=== PATIENT | female | born 1955 | race Caucasian/White ===

== ENCOUNTER 2018-05-19 12:32 | Observation (INO) ==
--- NOTE | 2018-05-19 13:16 | Emergency Department Note ---
Disposition Clinical Impression: Chest pain Qualifiers: Chest pain type: unspecified Qualified Code(s): R07.9 - Chest pain, unspecified Disposition: Admitted As Inpatient Condition: Undetermined Time of Disposition: 13:53 Chest Pain HPI - General Chief Complaint: ED Chest Pain Stated Complaint: CP Time Seen by Provider: 05/19/18 12:46 Source: patient Mode of arrival: ambulatory Limitations: no limitations Vital Signs Reviewed: Yes Nursing Notes Reviewed: Yes - History of Present Illness HPI Narrative: 62-year-old female with history of hypertension, hyperlipidemia, hypothyroidism arrives to the emergency Department complaint of retrosternal chest pain radiating around her right shoulder into her back. The patient has some mild associated shortness of breath. The patient states he has never had any cardiovascular disease, no previous cardiac testing. The patient states the patient is been intermittent in nature over the course of the past 2 weeks. The patient states that sometimes when she is relaxing and sitting still. Other times states that it is when she comes to work. The patient had a gallbladder ultrasound earlier today and was told that this is not what the pain is being caused from. The patient denies any other acute complaints at this time including unilateral excellent, recent surgeries or immobilizations, history of DVT or PE, hemoptysis. Severity scale (1-10): 1 - Related Data Allergies Allergy/AdvReac Type Severity Reaction Status Date / Time No Known Allergies Allergy Verified 12/26/15 07:14 All systems ED: reviewed and negative except as stated. Constitutional: Denies: fever, chills, weakness ENT ED: Denies: dysphagia Cardiovascular: Reports: chest pain. Denies: dyspnea on exertion, orthopnea, edema, syncope Respiratory: Reports: dyspnea. Denies: cough, sputum production Gastrointestinal: Denies: abdominal pain, nausea, vomiting Genitourinary: Denies: urgency, dysuria Musculoskeletal: Denies: back pain Integumentary: Denies: rash Neurological: Denies: headache Chest Pain PMH - Past Medical History Medical history: Reports: hyperlipidemia, hypertension, thyroid disease Psychiatric history: Reports: no psych history SHIRT PRESSER history: Reports: cervical cancer - Social History Smoking Status: Never smoker Alcohol use: Reports: none Drug use: Reports: none Physical Exam - General Limitations: no limitations General appearance: alert, in no apparent distress - Head Head exam: atraumatic, normocephalic, normal inspection - Eye Eye exam: Present: normal appearance, PERRL, EOMI - ENT ENT exam: normal exam, normal oropharynx, mucous membranes moist - Neck Neck exam: Present: normal inspection, full ROM, trachea midline - Chest Chest inspection: Present: normal inspection, symmetric chest wall rise - Respiratory Respiratory exam: Present: normal lung sounds bilaterally - Cardiovascular Cardiovascular exam: Present: regular rate, normal rhythm, normal heart sounds - Abdominal Exam Abdominal exam: Present: soft, Non-Tender. Absent: tenderness, distention, guarding, rebound, rigidity - Extremities Exam Extremities exam: Present: normal inspection, full ROM. Absent: tenderness, pedal edema - Back Exam Back exam: Present: normal inspection, full ROM. Absent: tenderness - Neurological Exam Neurological exam: Present: alert, oriented X3 - Skin Skin exam: Present: warm, dry, intact Course Vital Signs Temperature 98.7 F 05/19/18 12:38 Pulse Rate 85 05/19/18 12:38 Respiratory Rate 12 05/19/18 12:38 Blood Pressure 163/67 05/19/18 12:38 O2 Sat by Pulse Oximetry 96 05/19/18 12:38 Temperature 98.5 F 05/19/18 13:37 Pulse Rate 70 05/19/18 13:37 Respiratory Rate 16 05/19/18 13:37 Blood Pressure 153/67 05/19/18 13:40 O2 Sat by Pulse Oximetry 99 05/19/18 13:37 Oxygen Delivery Oxygen Delivery Room Air Chest Pain - MDM Narrative Medical decision making narrative: Patient's workup in the emergency department demonstrates no acute process. The patient is chest pain-free at this time. Given the patient's lack of previous cardiovascular workup combined with her risk factors and findings concerning for unstable angina, we will admit the patient to the hospital at this time. I shared decision making with the patient and we discussed about being discharged home or staying in the hospital she states she would like to stay in the hospital. Patient will be admitted the hospital this time. No further questions or concerns noted. - Medical Records Medical records reviewed: Yes I reviewed the patient's medical records. - Lab Data Lab results reviewed: Yes I reviewed the patient's lab results. Result diagrams: 05/19/18 12:59 05/19/18 12:56 Lab Results 03/29/19 03/29/19 03/29/19 Range/Units 12:46 12:56 12:59 WBC 8.0 (4.3-11.1) K/mcL RBC 4.50 (3.82-4.97) M/mcL Hgb 12.5 (11.5-15.4) g/dL Hct 38.6 (35.3-44.9) % MCV 85.8 (83.0-100.0) fL MCH 27.8 L (28.0-33.3) pg MCHC 32.4 (31.6-35.5) g/dL RDW 14.6 H (11.5-14.5) % Plt Count 302 (140-400) K/mcL MPV 11.9 (9.4-12.4) fL Immature Gran % 0.1 (0-4) % Seg Neutrophils % 57.2 % Lymphocytes % 33.2 % Monocytes % 6.8 % Eosinophils % 1.8 % Basophils % 0.9 % Neutrophils # 4.6 (1.6-8.9) K/mcL Lymphocytes # 2.6 (0.6-4.6) K/mcL Monocytes # 0.5 (0.0-1.3) K/mcL Eosinophils # 0.1 (0.0-0.6) K/mcL Basophils # 0.1 (0.0-0.2) K/mcL PT 11.6 (9.4-12.1) Seconds INR 1.0 APTT 31.4 (26.0-36.0) Seconds Sodium 143 (136-145) mEq/L Potassium 3.6 (3.5-5.1) mEq/L Chloride 105 (98-107) mEq/L Carbon Dioxide 27 (23-29) mEq/L BUN 25 H (8-23) mg/dL Creatinine 0.74 (0.60-1.20) mg/dL Est GFR ( Amer) > 60 (> 60) Est GFR (Non-Af Amer) > 60 (> 60) BUN/Creatinine Ratio 34 H (6-26) Glucose 143 H (70-105) mg/dL Calculated Osmolality 303 H (280-300) Calcium 9.3 (8.6-10.3) mg/dL Troponin I < 0.03 (< 0.04) ng/mL - Radiology Data Radiology results reviewed: Yes I reviewed the patient's radiology results. Chest X-Ray 05/19/18 12:46 IMPRESSION: No acute cardiopulmonary disease. D/ / Hannah Peguero MD / Hannah Peguero MD Interpreting Provider: Hannah Peguero MD - EKG Data EKG attestation: Yes I reviewed and interpreted this EKG. EKG results narrative: Problem heart rate 80 beats for minute. Normal sinus rhythm. No ST elevation or ST depression noted. Inverted T waves noted in V1. No other acute changes noted. Attestation Statement - Attestation Attestation: I, John Keys, examined this patient and my medical decision-making was reviewed with the INTERNATIONAL RECRUITER/PA/Advanced Practice Nurse/Resident Physician. I agree with the documented findings, disposition and treatment plan as described except to the extent set forth below. 60-year-old female presents emergency department with concerns of respiratory and chest pain. Patient states symptoms have been worsening over the past 2 weeks. Associated with exertion. Not present in the emergency department. Laboratory evaluation does not show significant abnormality. EKG did not show evidence of STEMI. Patient will be admitted for further care and evaluation of her acute onset chest pain to rule out ACS.
[2018-05-19 13:21] LABS: Basophils # 0.1 K/mcL (0.0-0.2); Basophils % 0.9 %; Eosinophils # 0.1 K/mcL (0.0-0.6); Eosinophils % 1.8 %; Hematocrit 38.6 % (35.3-44.9); Hemoglobin 12.5 g/dL (11.5-15.4); Immature Granulocytes % 0.1 % (0-4); Lymphocytes # 2.6 K/mcL (0.6-4.6); Lymphocytes % 33.2 %; Mean Corpuscular HGB Conc 32.4 g/dL (31.6-35.5); Mean Corpuscular Hemoglobin 27.8 pg (28.0-33.3); Mean Corpuscular Volume 85.8 fL (83.0-100.0); Mean Platelet Volume 11.9 fL (9.4-12.4); Monocytes # 0.5 K/mcL (0.0-1.3); Monocytes % 6.8 %; Neutrophils # 4.6 K/mcL (1.6-8.9); Platelet Count 302 K/mcL (140-400); Red Cell Distribution Width 14.6 % (11.5-14.5); Segmented Neutrophils % 57.2 %
[2018-05-19 13:28] LABS: Prothrombin Time 11.6 Seconds (9.4-12.1)
[2018-05-19 13:30] LABS: Activated Partial Thrombo Time 31.4 Seconds (26.0-36.0)
[2018-05-19 13:37] LABS: BUN/Creatinine Ratio 34 (6-26); Blood Urea Nitrogen 25 mg/dL (8-23); Calcium 9.3 mg/dL (8.6-10.3); Carbon Dioxide 27 mEq/L (23-29); Chloride 105 mEq/L (98-107); Glucose 143 mg/dL (70-105); Osmolality,Calculated 303 (280-300); Potassium 3.6 mEq/L (3.5-5.1); Sodium 143 mEq/L (136-145); Troponin I < 0.03 ng/mL (< 0.04); eGFR For Non-African Americans > 60 (> 60)
[2018-05-19] MEDS ORDERED: Aspirin 325 MG TABLET PO ONE (13:54)
[2018-05-19] MEDS ORDERED: Naloxone 0.4 MG/ML INJ IVP PRN (15:13)
[2018-05-19] MEDS ORDERED: Acetaminophen 325 MG TABLET PO PRN (15:13)
[2018-05-19] MEDS ORDERED: *HR* HYDROcodone/Acet 5/325 mg TABLET PO PRN (15:13)
[2018-05-19] MEDS ORDERED: Nitroglycerin 0.4 MG TAB.SUBL SL PRN (15:45)
--- NOTE | 2018-05-19 15:52 | Internal Med History&Physical ---
Date of Encounter: 05/19/18 Time of Encounter: 15:48 Internal Medicine - H&P: HPI Chief complaint: chest pain Admitted From: Emergency Dept Plans for Post Hospital Care: Home History of present illness: Ms. Cullen is a 62 year old female with known past medical history of hypertension and hyperlipidemia who presented to ER complaining about from last 2 weeks patient has been having intermittent chest pain located at sub sternal region, 5 out of 10 in severity, radiating to her upper back bilaterally, sometimes to her neck also. Her chest pain associated with some nausea. She does work in our OR as real estate associate. She had RUQ US done today which showed 1 cm right hepatic lobe hyperechoic focus, favoring benign etiology such as hemangioma or focal fatty replacement. Her initial troponin came back as negative. Past Med Surg Social Fam HX - Past Medical History Medical history: hyperlipidemia, hypertension, thyroid disease Psychiatric history: no psych history - Social History Smoking Status: Never smoker Smokeless Tobacco Status: No Alcohol use: none Drug use: none - Family History Father Living Status: Age at : 72 Cause of : CA Hx Family Cardiac Disorders: Yes (RI at age 62) Internal Medicine - H&P: Meds Allergy/AdvReac Type Severity Reaction Status Date / Time No Known Allergies Allergy Verified 12/26/15 07:14 All Systems PM: A 10-system review of systems was performed and is negative for pertinent findings except as documented above in the HPI. Review of systems: All the systems are reviewed everything is benign except the systems and sy mptoms I mentioned in the history of present illness - Constitutional Vitals: Temp Pulse Resp BP Pulse Ox 98.5 F 70 16 153/67 99 05/19/18 13:37 05/19/18 13:37 05/19/18 13:37 05/19/18 13:40 05/19/18 13:37 General appearance: Present: cooperative, A&O X 3, no acute distress, answers questions appropriately Exam: See below - Head Head exam: Present: atraumatic, normal inspection - Neck Neck exam general surgery: Present: supple - Respiratory Respiratory exam: Present: decreased breath sounds. Absent: rales, respiratory distress, rhonchi, wheezes - Cardiovascular Cardiovascular exam: Present: RRR, +S1, +S2. Absent: tachycardia - GI/Abdominal GI/Abdominal exam: Present: normal bowel sounds, soft. Absent: rebound, rigid, tenderness - Extremities Exam Extremities exam: Absent: calf tenderness, pedal edema, tenderness - Back Exam Back exam: Absent: CVA tenderness (L), CVA tenderness (R) - Neurological Exam Neurological exam: Present: alert, oriented X3, no focal deficits - Psychiatric Psychiatric exam: Present: normal affect, normal mood - Skin Skin exam: Absent: rash Internal Med - H&P Results - Labs CBC & Chem 7: 05/19/18 12:59 05/19/18 12:56 Labs: Short CBC 05/19/18 Range/Units 12:59 WBC 8.0 (4.3-11.1) K/mcL Hgb 12.5 (11.5-15.4) g/dL Hct 38.6 (35.3-44.9) % Plt Count 302 (140-400) K/mcL Neutrophils # 4.6 (1.6-8.9) K/mcL BMP 05/19/18 12:56 Sodium 143 Potassium 3.6 Chloride 105 Carbon Dioxide 27 BUN 25 H Creatinine 0.74 Glucose 143 H Calcium 9.3 Cardiac Enzymes 05/19/18 Range/Units 12:56 Troponin I < 0.03 (< 0.04) ng/mL - Impressions ITS Impressions Chest X-Ray 05/19/18 12:46 IMPRESSION: No acute cardiopulmonary disease. D/ / Hannah Peguero MD / Hannah Peguero MD Interpreting Provider: Hannah Peguero MD - Assessment and Plan (1) Chest pain Current Visit: Yes Status: Acute Assessment and plan: Will admit the pt into Tele for observation Will place pt on cardiac nurse specialist check serial troponin so far negative troponin EKG reviewed - showed normal sinus rhythm. no acute ST, T changes noticed reviewed her chest x-ray which did not show active infiltrates / no c onsolidation will start pt on ASA and Nitro PRN for pain Will check FLP in AM Will get stress test in AM since pt is high risk for ACS Qualifiers: Chest pain type: unspecified Qualified Code(s): R07.9 - Chest pain, unspecified (2) HTN (hypertension) Current Visit: Yes Status: Acute Assessment and plan: Will resume her home medication once the conformed by pharmacy grad intern mean while will give her Hydralazine IV PRN Qualifiers: Hypertension type: essential hypertension Qualified Code(s): I10 - Essential (primary) hypertension (3) DVT prophylaxis Current Visit: Yes Status: Acute Assessment and plan: Low risk early ambulation recommended - Time Spent With Patient Total time spent is greater than 50% in coordination of care (as documented) at patient's floor/unit and/or counseling patient:
[2018-05-20 07:00] LABS: Chol/HDL Ratio 2.5 (0-4.9)
[2018-05-20] MEDS ORDERED: Regadenoson 0.4 MG/5 ML SYRINGE IVP ONE (07:28)
--- NOTE | 2018-05-20 08:43 | Internal Med Progress Note ---
<CornelianydiaAmirah N - Last Filed: 05/20/18 11:25> Hospitalist Progress Note - Encounter Date of Encounter: 05/20/18 Time of Encounter: 09:15 - Subjective Interval History: Patient seen and examined at bedside this morning. She recently returned from her stress test. Denies any chest pain, SOB, diaphoresis, nausea, or palpitations. She does admit to a family history of coronary artery disease and heart attacks in her father in his 70s and her grandfather as well. Results from stress is pending. - Exam Vitals: Temp Pulse Resp BP Pulse Ox 97.6 F 63 15 174/78 98 05/20/18 06:54 05/20/18 06:54 05/20/18 06:54 05/20/18 06:54 05/20/18 06:54 Exam: General: Resting comfortably in bed, no acute distress HEENT: Pupils are equal and round, EOMI, mucosa moist, external ears and ears patent Neck: No JVD, trachea midline Chest: Symmetrical chest rise, no tenderness to palpation Cardiovascular: Regular rate and rhythm, no murmurs Respiratory: Clear to auscultation bilaterally, no rales or wheezing Abdomen: Soft, nontender, no guarding rigidity Extremity: No cyanosis, clubbing, or edema Neurological: Alert and oriented 3, no obvious focal neurological deficits Psych: Pleasant, appropriate mood and affect - Assessment and Plan (1) Chest pain Status: Acute Assessment and Plan: Serial troponins and EKG negative for ischemic disease Patient is high risk for coronary artery disease as she has family history of AL in her father and grandfather. Pulses hospitalist hypertension hyperlipidemia Lipids within range Vitals stable Does not report any chest pain or shortness of breath this morning Recently returned from a stress test, stress results pending We will continue daily aspirin, has not required nitroglycerin for chest pain (2) HTN (hypertension) Status: Acute Assessment and Plan: Restarted home antihypertensives (3) Hypothyroidism Status: Acute Assessment and Plan: Levothyroxine (4) Hyperlipidemia Status: Acute Assessment and Plan: Lipids within range Continue statin (5) Hyperglycemia Status: Acute Assessment and Plan: Patient's glucose on admission 143 No known history of diabetes We will collect A1c (6) DVT prophylaxis Status: Acute Assessment and Plan: Heparin subcutaneous - Time Spent with Patient Total time spent is greater than 50% in coordination of care (as documented) at patient's floor/unit and/or counseling patient: Internal Medicine: Result - Labs CBC & Chem 7: 05/19/18 12:59 05/19/18 12:56 Labs: Short CBC 05/19/18 Range/Units 12:59 WBC 8.0 (4.3-11.1) K/mcL Hgb 12.5 (11.5-15.4) g/dL Hct 38.6 (35.3-44.9) % Plt Count 302 (140-400) K/mcL Neutrophils # 4.6 (1.6-8.9) K/mcL BMP 05/19/18 12:56 Sodium 143 Potassium 3.6 Chloride 105 Carbon Dioxide 27 BUN 25 H Creatinine 0.74 Glucose 143 H Calcium 9.3 Cardiac Enzymes 05/19/18 05/19/18 05/20/18 Range/Units 12:56 20:44 04:02 Troponin I < 0.03 < 0.03 < 0.03 (< 0.04) ng/mL - ABG Interpretation ABG results: PT/INR, D-dimer PT 11.6 Seconds (9.4-12.1) 05/19/18 12:46 - Impressions Impressions Chest X-Ray 05/19/18 12:46 IMPRESSION: No acute cardiopulmonary disease. D/ / Hannah Peguero MD / Hannah Peguero MD Interpreting Provider: Hannah Peguero MD Consult Discharge Plan - Plan Instructions: Chest Pain (DC), Hypothyroidism (DC), Chronic Hypertension (DC) Referrals: Taye Mcdonald MD [Primary Care Provider] - (Your appointment has been requested, our offices will call with an appointment time and date.) <Sivakumar Chandler - Last Filed: 05/20/18 19:22> Hospitalist Progress Note - Encounter Date of Encounter: 05/20/18 - Exam Vitals: Temp Pulse Resp BP Pulse Ox 98.4 F 51 16 135/67 98 05/20/18 10:50 05/20/18 10:50 05/20/18 10:50 05/20/18 11:07 05/20/18 10:50 - Assessment and Plan (1) Chest pain Status: Acute (2) HTN (hypertension) Status: Acute (3) DVT prophylaxis Status: Acute - Time Spent with Patient Total time spent is greater than 50% in coordination of care (as documented) at patient's floor/unit and/or counseling patient: Internal Medicine: Result - Labs CBC & Chem 7: 05/19/18 12:59 05/19/18 12:56 Labs: Cardiac Enzymes 05/19/18 05/20/18 Range/Units 20:44 04:02 Troponin I < 0.03 < 0.03 (< 0.04) ng/mL - ABG Interpretation ABG results: PT/INR, D-dimer PT 11.6 Seconds (9.4-12.1) 05/19/18 12:46 - Attending Attestation See discharge summary of this date. <Amirah Lane N - Last Filed: 05/20/18 11:25> (1) Chest pain Qualifiers: Chest pain type: unspecified Qualified Code(s): R07.9 - Chest pain, unspecified (2) HTN (hypertension) Qualifiers: Hypertension type: essential hypertension Qualified Code(s): I10 - Essential (primary) hypertension <Sivakumar Chandler A - Last Filed: 05/20/18 19:22> (1) Chest pain Qualifiers: Chest pain type: unspecified Qualified Code(s): R07.9 - Chest pain, unspecified (2) HTN (hypertension) Qualifiers: Hypertension type: essential hypertension Qualified Code(s): I10 - Essential (primary) hypertension
[2018-05-20] MEDS ORDERED: Aspirin Enteric Coated 81 MG Tablet PO SCH (09:00)
[2018-05-20 11:13] VITALS: BP 135/67
--- NOTE | 2018-05-20 13:40 | Discharge Summary ---
<Amirah Lane N - Last Filed: 05/20/18 14:26> - NOTES TO OUTPATIENT PROVIDER Notes to Outpatient Provider: follow up on patient's chest pain, serial troponins, ekg, and stress test were negative for ischemic etiology. Patient has significant family history of ME. started on aspirin. F/U on RUQ ultrasound that showed hyperechoic focus in liver likely reflecting hemangioma or fatty replacement Orders not resulted at time of discharge: Pending orders 05/19/18 15:45 NM dom perf SPECT multi [NM] Routine 05/20/18 04:02 Hgb A1C Routine Date of Encounter: 05/20/18 Time of Encounter: 14:26 - Discharge Diagnosis (1) Chest pain Priority: Primary Status: Acute Qualifiers: Chest pain type: unspecified Qualified Code(s): R07.9 - Chest pain, unspecified (2) HTN (hypertension) Priority: Secondary Status: Acute Qualifiers: Hypertension type: essential hypertension Qualified Code(s): I10 - Essential (primary) hypertension (3) Hypothyroidism Priority: Secondary Status: Acute Qualifiers: Qualified Code(s): E03.9 - Hypothyroidism, unspecified (4) Hyperlipidemia Priority: Secondary Status: Chronic Qualifiers: Qualified Code(s): E78.5 - Hyperlipidemia, unspecified Hospital course: Ms. Cullen is a 62 year old female admitted with chest pain. Substernal radiating to upper back and neck. also had RUQ ultrasound that showed a 1cm rig ht hepatic lobe hyperechoic focus favoring benign etiology such as hemangioma or focal fatty replacement. serial troponins were negative. EKG negative. Stress test unremarkable for ischemia. patient discharged to home in stable condition on aspirin - Time Spent with Patient Total time spent providing and/or coordinating discharge services: - Discharge Medications Prescriptions: New RX: Aspirin Enteric Coated [Aspirin EC] 81 mg PO DAILY tablet. Continue RX: Lisinopril [Zestril] 10 mg PO DAILY RX: Atorvastatin [Lipitor] 40 mg PO HS RX: Levothyroxine Sodium [Levoxyl] 100 mcg PO DAILY Home Medications: RX: Atorvastatin [Lipitor] 40 mg PO HS 05/19/18 [History] RX: Lisinopril [Zestril] 10 mg PO DAILY 05/19/18 [History] RX: Aspirin Enteric Coated [Aspirin EC] 81 mg PO DAILY tablet. 05/20/18 [Rx] RX: Levothyroxine Sodium [Levoxyl] 100 mcg PO DAILY 05/20/18 [History] Allergies/Adverse Reactions: Allergy/AdvReac Type Severity Reaction Status Date / Time No Known Allergies Allergy Verified 05/20/18 12:28 Date of admission: 05/19/18 14:41 Primary care physician: Taye Mcdonald MD Discharging clinician: Amirah Lane Anticipated date of discharge: 05/20/18 - Constitutional Vitals: Temp Pulse Resp BP Pulse Ox 98.4 F 51 16 135/67 98 05/20/18 10:50 05/20/18 10:50 05/20/18 10:50 05/20/18 11:07 05/20/18 10:50 General appearance: Present: cooperative, A&O X 3, no acute distress, answers questions appropriately Exam: General: Resting comfortably in bed, no acute distress HEENT: Pupils are equal and round, EOMI, mucosa moist, external ears and ears patent Neck: No JVD, trachea midline Chest: Symmetrical chest rise, no tenderness to palpation Cardiovascular: Regular rate and rhythm, no murmurs Respiratory: Clear to auscultation bilaterally, no rales or wheezing Abdomen: Soft, nontender, no guarding rigidity Extremity: No cyanosis, clubbing, or edema Neurological: Alert and oriented 3, no obvious focal neurological deficits Psych: Pleasant, appropriate mood and affect - Patient Status Disposition: Home, Self-Care Condition: Fair Overall status at discharge: patient is progressing back to baseline - Discharge Instructions Instructions: Chest Pain (DC), Hypothyroidism (DC), Chronic Hypertension (DC) Follow Up With: Taye Mcdonald MD [Primary Care Provider] - (Your appointment has been requested, our offices will call with an appointment time and date.) - Diet and Activity Activity: increase activity as tolerated Diet: advance to your usual diet <Sivakumar Chandler - Last Filed: 05/20/18 19:36> Orders not resulted at time of discharge: Pending orders 05/19/18 15:45 NM dom perf SPECT multi [NM] Routine 05/20/18 04:02 Hgb A1C Routine Date of Encounter: 05/20/18 - Discharge Diagnosis (1) Chest pain Status: Ruled-out Qualifiers: Chest pain type: chest pain due to myocardial ischemia Qualified Code(s): I20.0 - Unstable angina (2) HTN (hypertension) Status: Acute Qualifiers: Hypertension type: essential hypertension Qualified Code(s): I10 - Essential (primary) hypertension (3) Hypothyroidism Status: Acute Qualifiers: Hypothyroidism type: acquired Qualified Code(s): E03.9 - Hypothyroidism, unspecified (4) Hyperlipidemia Status: Chronic Qualifiers: Hyperlipidemia type: mixed hyperlipidemia Qualified Code(s): E78.2 - Mixed hyperlipidemia Hospital course: Ms. Cullen is a 62 year old female - Time Spent with Patient Total time spent providing and/or coordinating discharge services: 25min Date of admission: 05/19/18 14:41 Primary care physician: Taye Mcdonald MD - Constitutional Vitals: Temp Pulse Resp BP Pulse Ox 98.4 F 51 16 135/67 98 05/20/18 10:50 05/20/18 10:50 05/20/18 10:50 05/20/18 11:07 05/20/18 10:50 - Attending Attestation I examined this patient and my medical decision-making was reviewed with the Resident Physician on 05/20/18. I agree with the documented findings, disposition and treatment plan as described except to the extent set forth below. Ms Cullen has been in observation due to chest pain. She underwent stress test today that was neg. She is asymptomatic and ready for discharge home. Exam Alert comfortable Mucus membranes dry Heart not tachy No wheeze abd soft Plan D/C home today.
--- NOTE | 2018-05-20 14:04 | Electrocardiograph Report ---
[place] [id number] Test Date: 2018-05-19 Pat Name: Lali Cullen Department: EXAM3 Room: 3B43 Gender: F Rn On Site: : 1955 Requested By: Madi Russell Order Number: [id number] Reading MD: Hansa Vargas Measurements Intervals [place] Rate: 80 P: 7 MA: 149 QRS: 60 QRSD: 91 T: 38 QT: 386 QTc: 446 Interpretive Statements Sinus rhythm RSR' in V1 or V2, right VCD or RVH Electronically Signed On 05-20-2018 14:02:22 EDT by Hansa Vargas
[2018-05-20] MEDS ORDERED: *HR* Heparin 5,000 UNIT/ML VIAL SQ SCH (18:00)
[2018-05-21 08:16] LABS: Estimated Average Glucose 134 mg/dl; Hemoglobin A1C 6.3 %
== END 2018-05-20 14:13 | disposition home or self-care (01) ==
LOC: EMEROOARM 12:32 → 3BNU 12:32 → SUATTDRO 14:41 → 3BNU 15:31
PROVIDERS: ADMIT Internal Medicine; ATTEND Internal Medicine